=== PATIENT | male | born 1975 | race Caucasian/White ===

== ENCOUNTER 2023-01-26 23:18 | Emergency (ER) | payer OTHER ==
[2023-01-26 23:22] VITALS: BP 135/84; PULSE 68; RESP 18; TEMP 98; BMI 20.3
[2023-01-27] MEDS ORDERED: KETOROLAC TROMETHAMINE 30 MG/1 ML VIAL IM ONE (00:34)
== END 2023-01-27 01:55 | disposition home or self-care (01) ==
LOC: JER 23:18
DX: M62.831 Muscle spasm of calf (principal); M79.661 Pain in right lower leg; M79.89 Other specified soft tissue disorders; X50.9XXA Other and unspecified overexertion or strenuous movements or postures, initial encounter; Y93.02 Activity, running; Y92.9 Unspecified place or not applicable
CPT/HCPCS: 93971-TC; 99284-25

== ENCOUNTER 2023-12-30 23:52 | Emergency (ER) | payer OTHER ==
[2023-12-30 23:59] VITALS: BP 156/89; PULSE 93; RESP 18; TEMP 98.4; BMI 27.4
[2023-12-31] MEDS ORDERED: ACETAMINOPHEN 325 MG TABLET (FP) ONE (01:06)
[2023-12-31] MEDS ORDERED: LIDOCAINE 5% TOPICAL PATCH ONE (01:06)
[2023-12-31] MEDS: LIDOCAINE 5% TOPICAL PATCH TP ONE (01:14)
[2023-12-31] MEDS: ACETAMINOPHEN 325 MG TABLET (FP) PO ONE (01:14)
[2023-12-31] MEDS ORDERED: DIPHTH,PERTUSS(ACELL),TET 0.5 ML DISP.SYRIN IM ONE (03:07)
[2023-12-31] MEDS: DIPHTH,PERTUSS(ACELL),TET 0.5 ML DISP.SYRIN IM ONE (03:12)
[2023-12-31] MEDS ORDERED: LIDOCAINE PATCH REMOVAL MC ONE (13:00)
== END 2023-12-31 03:13 | disposition home or self-care (01) ==
LOC: JER 23:52
PROC: 3E0234Z Introduction of Serum, Toxoid and Vaccine into Muscle, Percutaneous Approach (ICD-10-PCS; principal; 2023-12-31)
DX: S00.81XA Abrasion of other part of head, initial encounter (principal); S80.812A Abrasion, left lower leg, initial encounter; Y04.8XXA Assault by other bodily force, initial encounter; Z23 Encounter for immunization
CPT/HCPCS: 70450-TC; 72125-TC; 90471; 90715; 99284-25

== ENCOUNTER 2024-01-10 00:18 | Emergency (ER) | payer OTHER ==
[2024-01-10 00:24] VITALS: BP 125/79; PULSE 70; RESP 18; TEMP 97.5; BMI 26.8
[2024-01-10] MEDS ORDERED: CEPHALEXIN MONOHYDRATE 500 MG CAPSULE (UD) ONE (01:50)
[2024-01-10] MEDS: CEPHALEXIN MONOHYDRATE 500 MG CAPSULE (UD) PO ONE (02:08)
[2024-01-10] MEDS: DIPHTH,PERTUSS(ACELL),TET 0.5 ML DISP.SYRIN IM ONE (02:08)
== END 2024-01-10 02:34 | disposition home or self-care (01) ==
LOC: JER 00:18
PROC: 0XQMXZZ Repair Left Thumb, External Approach (ICD-10-PCS; principal; 2024-01-10)
DX: S61.012A Laceration without foreign body of left thumb without damage to nail, initial encounter (principal); W26.8XXA Contact with other sharp object(s), not elsewhere classified, initial encounter; Y93.E5 Activity, floor mopping and cleaning
CPT/HCPCS: 99283-25

== ENCOUNTER 2024-01-17 14:40 | Emergency (ER) | payer OTHER ==
[2024-01-17 14:46] VITALS: BP 130/81; PULSE 67; RESP 16; TEMP 98.3; BMI 25.8
== END 2024-01-17 16:02 | disposition home or self-care (01) ==
LOC: JERFT 14:40 → JER 14:40 → JERFT 16:02
DX: Z48.02 Encounter for removal of sutures (principal)
CPT/HCPCS: 99281-25

== ENCOUNTER 2024-04-29 11:44 | Emergency (ER) | payer OTHER ==
[2024-04-29 12:01] VITALS: BP 135/94; PULSE 79; RESP 18; TEMP 97.9; BMI 26.6
[2024-04-29] MEDS ORDERED: INSULIN (NOVOLOG MIX 70/30) 100 UNITS/ML MDV SQ ONE (12:02)
== END 2024-04-29 14:41 | disposition home or self-care (01) ==
LOC: JERFT 11:44
DX: M25.561 Pain in right knee (principal); X50.0XXA Overexertion from strenuous movement or load, initial encounter; Y93.64 Activity, baseball
CPT/HCPCS: 73562-TC-RT-FY; 99283-25